=== PATIENT | male | born 1965 | race Caucasian/White ===

== ENCOUNTER 2017-08-03 00:07 | Emergency (ER) | payer OTHER ==
[~2017-08-03] VITALS: Ht 162.6 cm; Wt 68.0 kg
[2017-08-03] MEDS ORDERED: NKM (00:14)
[2017-08-03 00:30] VITALS: BP 125/72
[2017-08-03] MEDS ORDERED: IBUPROFEN600 MG ORAL (01:53)
[2017-08-03] MEDS ORDERED: Ketorolac 30mg Inj IM ONE (02:00)
[2017-08-03 02:10] VITALS: BP 122/75
[2017-08-03 05:44] VITALS: BP 134/91
[2017-08-03 05:50] VITALS: BP 134/91
--- NOTE | 2017-08-03 05:51 | Emergency Room Report ---
History of Present Illness General Chief Complaint: Pain Source: Patient, EMS Present Illness HPI 52-year-old male presents ED for evaluation. Patient brought in by EMS. Patient complaining of chronic pain. Complaining of back pain neck pain diffuse joint pain. Has had this pain for many years now. Throbbing, 7 out of 10, nonradiating. States he does not have any medication for his pain. Denies any recent fall or injury. No other aggravating relieving factors. Denies any other associated symptoms Allergies: Coded Allergies: No Known Allergies (Unverified , 08/03/17) Patient History Past Medical History: none Past Surgical History: none Pertinent Family History: none Social History: Denies: smoking, alcohol use, drug use Immunizations: UTD Reviewed Nursing Documentation: PMH: Agreed, PSxH: Agreed Nursing Documentation-PMH Past Medical History: No Stated History Review of Systems All Other Systems: negative except mentioned in HPI Physical Exam Vital Signs Date Time Temp Pulse Resp B/P (MAP) Pulse Ox O2 Delivery O2 Flow Rate FiO2 08/03/17 00:11 98.1 102 16 128/70 99 98.1 08/03/17 00:30 Room Air Sp02 EP Interpretation: reviewed, normal General Appearance: no apparent distress, alert, GCS 15, non-toxic Head: normocephalic, atraumatic Eyes: bilateral eye normal inspection, bilateral eye PERRL ENT: hearing grossly normal, normal pharynx, no angioedema, normal voice Neck: full range of motion, supple/symm/no masses Respiratory: chest non-tender, lungs clear, normal breath sounds, speaking full sentences Cardiovascular #1: regular rate, rhythm, no edema Cardiovascular #2: 2+ carotid (R), 2+ carotid (L), 2+ radial (R), 2+ radial (L) , 2+ dorsalis pedis (R), 2+ dorsalis pedis (L) Gastrointestinal: normal bowel sounds, non tender, soft, non-distended, no guarding, no rebound Rectal: deferred Genitourinary: normal inspection, no CVA tenderness Musculoskeletal: back normal, gait/station normal, normal range of motion, non- tender Neurologic: alert, oriented x3, responsive, motor strength/tone normal, sensory intact, speech normal Psychiatric: judgement/insight normal, memory normal, mood/affect normal, no suicidal/homicidal ideation Reflexes: 3+ bicep (R), 3+ bicep (L), 3+ tricep (R), 3+ tricep (L), 3+ knee (R) , 3+ knee (L) Skin: normal color, no rash, warm/dry, well hydrated Lymphatic: no adenopathy Procedures Laceration/Wound Repair Laceration/Wound Repair : Consent: Verbal Wound Location: head Wound's Depth, Shape: linear Wound Explored: clean Betadine Prep?: No Wound Debrided: minimal Wound Repaired With: Dermabond Layer Closure?: No Sterile Dressing Applied?: Yes Splint Applied?: No Sling Applied?: No Patient Tolerated: Well Complications: None Medical Decision Making Diagnostic Impression: Primary Impression: Pain Additional Impressions: Head injury Qualified Codes: S09.90XA - Unspecified injury of head, initial encounter Forehead laceration Qualified Codes: S01.81XA - Laceration without foreign body of other part of head, initial encounter ER Course Hospital Course 52-year-old male presents ED complaining of chronic back and joint pains. Requesting shot Clinical course Patient placed on stretcher. After initial history and physical I ordered Toradol Patient completed Toradol injection. Patient wanted to sleep. Attempted to sleep in chair and fell out of chair hitting his head. Sustained laceration to forehead on right side. CT head unremarkable Wound irrigated. Dermabond applied. Patient is safe for discharge Diagnosis - forehead laceration, head injury, pain Stable and discharged to home with prescription for Motrin. wound Care instructions given. Followup with PMD. Return to ED if any signs of infection develop CT/MRI/US Diagnostic Results CT/MRI/US Diagnostic Results : Imaging Test Ordered: CT Head Impression no acute process Last Vital Signs Date Time Temp Pulse Resp B/P (MAP) Pulse Ox O2 Delivery O2 Flow Rate FiO2 08/03/17 05:44 65 18 134/91 98 Room Air 08/03/17 02:08 98.1 Status: improved Disposition: HOME, SELF-CARE Condition: Stable Scripts Ibuprofen* (MOTRIN*) 600 Mg Tablet 600 MG ORAL Q8H Y for For Pain, #30 TAB 0 Refills Prov: KIRBY LAMBERT M.D. 08/03/17 Referrals: [facility],REFERRING (PCP) Patient Instructions: Chronic Pain KIRBY LAMBERT M.D. Aug 03, 2017 05:50
--- NOTE | 2017-08-03 10:00 | Diagnostic Imaging Report ---
Indication: Headache status post fall Technique: spiral acquisitions obtained through the brain. Angled axial and coronal 5 x 5 mm slices were reconstructed. No IV contrast utilized. Radiation dose was minimized using automated exposure control Total dose length product 1330.34 mGycm. CTDIvol(s) 70.38 mGy Comparison: none FINDINGS: No acute hemorrhage or edema. No mass effect or midline shift. There is age-related enlargement of the ventricles and extra axial CSF spaces. Normal cardenas-white differentiation. Visualized orbits are unremarkable. There is mild ethmoid sinus mucosal disease. Intact calvarium. There is minimal soft tissue swelling at the vertex IMPRESSION: Chronic and age-related changes. Negative for acute intracranial bleed or mass effect This agrees with the preliminary interpretation provided overnight by [facility]. The CT scanner at [facility] is accredited by the [employer] and the scans are performed using protocols designed to limit radiation exposure to as low as reasonably achievable to attain images of sufficient resolution adequate for diagnostic evaluation
== END 2017-08-03 05:50 | disposition home or self-care (01) ==
LOC: EDBD 00:07 → EMR 02:30
DX: G89.29 Other chronic pain (principal); M54.9 Dorsalgia, unspecified; S01.81XA Laceration without foreign body of other part of head, initial encounter; X58.XXXA Exposure to other specified factors, initial encounter; Y92.9 Unspecified place or not applicable
CPT/HCPCS: 12011; 70450; 96372; 99284; J1885; Z7502

== ENCOUNTER 2018-07-10 23:28 | Emergency (ER) | payer OTHER ==
[~2018-07-10] VITALS: Ht 162.6 cm; Wt 68.0 kg
[~2018-07-10 23:28] MED LIST: BACITRACIN15 GM TOPIC; IBUPROFEN600 MG ORAL; METFORMIN HCL500 M1 ORAL; NKM; QUETIAPINE FUM200 MG ORAL; UNOBMED
[2018-07-10 23:39] VITALS: BP 128/74
--- NOTE | 2018-07-10 23:39 | NUR ---
ED Nurse Note: pt was brought in by ambulance from home c/o behavioral episode. pt denies si, pt stated he doesnt want to stay in his home, denies abuse. will continue to monitor
--- NOTE | 2018-07-10 23:51 | Emergency Room Report ---
History of Present Illness General Chief Complaint: Behavioral Complaint Source: Patient Present Illness HPI This is a 53-year-old male with a history of diabetes. He also history of methamphetamine abuse. He presents with chief complaint of not liking when he lived. He tell EMS he was depressed. He call from a [place] [facility] from his apartment. He said his apartment is causing him to get sicker because people living there. He said that he did not like it there. He denies any suicidal thoughts to me. Denies any homicidal thoughts or hallucination. Denies any other complaint. Said that he wants to move back to [place]. Allergies: Coded Allergies: No Known Allergies (Unverified , 08/03/17) Patient History Past Medical History: see triage record, old chart reviewed, DM Past Surgical History: other Pertinent Family History: none Social History: Reports: smoking, drug use - Methamphetamine Immunizations: other Reviewed Nursing Documentation: PMH: Agreed; PSxH: Agreed Nursing Documentation-PMH Hx Diabetes: Yes Review of Systems Eye: Denies: eye pain, blurred vision ENT: Denies: ear pain, nose congestion, throat swelling Respiratory: Denies: cough, shortness of breath Cardiovascular: Denies: chest pain, palpitations Gastrointestinal: Denies: abdominal pain, diarrhea, nausea, vomiting Musculoskeletal: Denies: back pain, joint pain Skin: Denies: rash Neurological: Denies: headache, numbness Endocrine: Denies: increased thirst, increased urine Hematologic/Lymphatic: Denies: easy bruising All Other Systems: negative except mentioned in HPI Physical Exam Vital Signs Date Time Temp Pulse Resp B/P (MAP) Pulse Ox O2 Delivery O2 Flow Rate FiO2 07/10/18 23:24 98.2 108 16 128/74 98 Room Air vitals normal Sp02 EP Interpretation: reviewed, normal General Appearance: well appearing, no apparent distress, alert Head: normocephalic, atraumatic Eyes: bilateral eye PERRL, bilateral eye EOMI ENT: hearing grossly normal, normal pharynx Neck: full range of motion, supple, no meningismus Respiratory: chest non-tender, lungs clear, normal breath sounds Cardiovascular #1: regular rate, rhythm, no murmur Gastrointestinal: normal bowel sounds, non tender, no mass, no organomegaly, no bruit, non-distended Musculoskeletal: back normal, gait/station normal, normal range of motion Psychiatric: mood/affect normal Skin: warm/dry Medical Decision Making Diagnostic Impression: Primary Impression: Behavioral disorder Additional Impression: Methamphetamine abuse ER Course Patient with no clear complaint other than he does not likely living. No criteria for 5150. Last Vital Signs Date Time Temp Pulse Resp B/P (MAP) Pulse Ox O2 Delivery O2 Flow Rate FiO2 07/10/18 23:39 98.2 108 16 128/74 98 Room Air Status: unchanged Disposition: HOME, SELF-CARE Condition: Stable Referrals: [facility],REFERRING (PCP) Additional Instructions: Follow-up with your Dr. in 7 days. Return if symptom worsen. Stop using drugs. Hebert Miller MD Jul 10, 2018 23:51
[2018-07-10 23:54] VITALS: BP 128/74
--- NOTE | 2018-07-10 23:54 | NUR ---
ER DISCHARGE NOTE: Patient is cleared to be discharged per ERMD, pt is aox4, on room air, with stable vital signs. pt was given dc instruction pt was able to verbalize understanding, pt id band removed without complications. pt is able to ambulate with steady gait. pt took all belongings.
== END 2018-07-10 23:54 | disposition home or self-care (01) ==
LOC: EDBD 23:28 → EMR 23:47
DX: F91.9 Conduct disorder, unspecified (principal); F15.10 Other stimulant abuse, uncomplicated; E11.9 Type 2 diabetes mellitus without complications
CPT/HCPCS: 99281

== ENCOUNTER 2018-08-19 13:33 | Emergency (ER) | payer OTHER ==
[~2018-08-19] VITALS: Ht 165.1 cm; Wt 59.0 kg
[2018-08-19 13:45] VITALS: BP 113/69
[2018-08-19 13:59] LABS: APPEARANCE,URINE CLEAR; BILIRUBIN, URINE NEGATIVE (NEGATIVE); COLOR,URINE PALE YELLOW; GLUCOSE, URINE (UA) 4+ (NEGATIVE); KETONES,URINE NEGATIVE (NEGATIVE); LEUKOCYTE ESTERASE ,URINE NEGATIVE (NEGATIVE); NITRITE,URINE NEGATIVE (NEGATIVE); PH,URINE 5 (4.5-8.0); PROTEIN,URINE NEGATIVE (NEGATIVE); UROBILINOGEN,URINE NORMAL MG/DL (0.0-1.0)
[2018-08-19] MEDS ORDERED: Mylanta II UD 30ml ORAL ONE (14:00)
[2018-08-19] MEDS ORDERED: Lidocaine 2% Visc 15ml soln ORAL ONE (14:00)
[2018-08-19] MEDS ORDERED: Dicyclomine HCl 10mg/5ml oral soln ORAL ONE (14:00)
--- NOTE | 2018-08-19 14:00 | NUR ---
ED Nurse Note: pt brought by RA from street due to abodminal pain without n/v/d. per pt, resident at the [facility]. pt appears to be agitated, unalbe to stay still. BS 444 at the bed side. pt c/o thirsty. water provide. per pt, has dm but non-compliant for meds. AAO x4. respirations even and non-labored noted. skin warm to touch. no open wound noted. will wait for the further order.
--- NOTE | 2018-08-19 14:30 | Diagnostic Imaging Report ---
Indication: Shortness of breath Technique: One view of the chest Comparison: 04/17/2018 Findings: The lungs and pleural spaces are clear. The heart is borderline enlarged. No significant interim change Impression: Borderline cardiomegaly. No acute process
[2018-08-19 14:40] LABS: BASOPHILS % (AUTO) 1.2 % (0.0-2.0); EOSINOPHILS % (AUTO) 1.6 % (0.0-3.0); HEMATOCRIT 31.7 % (42.0-52.0); HEMOGLOBIN 10.9 G/DL (14.2-18.0); LYMPHOCYTES % (AUTO) 33.2 % (20.0-45.0); MEAN CORPUSCULAR VOLUME 96 FL (80-99); MONOCYTES % (AUTO) 9.2 % (1.0-10.0); NEUTROPHILS % (AUTO) 54.8 % (45.0-75.0); PLATELET COUNT 262 K/UL (150-450); RED CELL DISTRIBUTION WIDTH 13.5 % (11.6-14.8); WHITE BLOOD COUNT 4.5 K/UL (4.8-10.8)
[2018-08-19 14:48] LABS: ANION GAP 12 mmol/L (5-15); BLOOD UREA NITROGEN 14 mg/dL (7-18); CALCIUM 9.5 MG/DL (8.5-10.1); CARBON DIOXIDE 29 MMOL/L (21-32); CHLORIDE 96 MMOL/L (98-107); CREATININE 0.9 MG/DL (0.55-1.30); POTASSIUM 4.1 MMOL/L (3.5-5.1); SODIUM 137 MMOL/L (136-145)
[2018-08-19 14:52] LABS: ALANINE AMINOTRANSFERASE 101 U/L (12-78); ALBUMIN 3.4 G/DL (3.4-5.0); ALBUMIN/GLOBULIN RATIO 0.9 (1.0-2.7); ALKALINE PHOSPHATASE 155 U/L (46-116); ASPARTATE AMINO TRANSFERASE 43 U/L (15-37); BILIRUBIN,TOTAL 0.4 MG/DL (0.2-1.0)
[2018-08-19] MEDS ORDERED: LORazepam Inj 2mg/ml 1ml IM ONE (15:00)
--- NOTE | 2018-08-19 15:00 | NUR ---
ED Nurse Note: RN confirmed with Dr. White that ativan 2mg IV, not IM. will administer med as ordered.
--- NOTE | 2018-08-19 15:50 | Emergency Room Report ---
History of Present Illness General Chief Complaint: Abdominal Pain Source: Patient Present Illness HPI This is a 53-year-old male with extensive psychiatric history, diabetes, noncompliance, who complains of not taking his medication He is somewhat agitated. He denies any suicidal or homicidal ideation. He states that he got kicked out of his board and care facility. He denies any hallucinations. He is somewhat of a poor historian Allergies: Coded Allergies: No Known Allergies (Unverified , 08/03/17) Patient History Past Medical History: DM Past Surgical History: unable to obtain Pertinent Family History: DM Social History: Reports: smoking Nursing Documentation-[facility] Past Medical History: No History, Except For Hx Hypertension: Yes Hx Diabetes: Yes Review of Systems All Other Systems: negative except mentioned in HPI Physical Exam Vital Signs Date Time Temp Pulse Resp B/P (MAP) Pulse Ox O2 Delivery O2 Flow Rate FiO2 08/19/18 13:36 98.6 94 14 113/69 96 Room Air Sp02 EP Interpretation: reviewed General Appearance: well appearing, no apparent distress ENT: hearing grossly normal, normal voice Neck: full range of motion, supple Respiratory: no respiratory distress, speaking full sentences Gastrointestinal: non tender, soft Neurologic: normal inspection, alert, oriented x3, responsive Psychiatric: anxious Medical Decision Making Diagnostic Impression: Primary Impression: Hyperglycemia Additional Impression: hyperglycemia ER Course Patient presents significant complexity of risk requiring multiple bedside evaluation. Initially was very conservative acute diabetic ketoacidosis and cholecystitis, pancreatitis. The patient's gallbladder was reviewed. LFTs were reviewed as well. The blood sugar improved after IV hydration. The patient has a history of long-standing or complaints. The patient was somewhat agitated was given Ativan. He is much more calm now. He is not acutely psychotic. He has no hallucinations. He has no suicidal or homicidal ideation. The patient stabilization, I feel the patient may be discharged home with very close follow-up with his primary care physician and another reminder to continue taking his medications. Laboratory Tests Test 08/19/18 13:45 08/19/18 14:05 Urine Color Pale yellow Urine Appearance Clear Urine pH 5 (4.5-8.0) Urine Specific [place] 1.015 (1.005-1.035) Urine Protein Negative (NEGATIVE) Urine Glucose (UA) 4+ (NEGATIVE) H Urine Ketones Negative (NEGATIVE) Urine Blood Negative (NEGATIVE) Urine Nitrite Negative (NEGATIVE) Urine Bilirubin Negative (NEGATIVE) Urine Urobilinogen Normal MG/DL (0.0-1.0) Urine Leukocyte Esterase Negative (NEGATIVE) White Blood Count 4.5 K/UL (4.8-10.8) L Red Blood Count 3.30 M/UL (4.70-6.10) L Hemoglobin 10.9 G/DL (14.2-18.0) L Hematocrit 31.7 % (42.0-52.0) L Mean Corpuscular Volume 96 FL (80-99) Mean Corpuscular Hemoglobin 32.9 PG (27.0-31.0) H Mean Corpuscular Hemoglobin Concent 34.3 G/DL (32.0-36.0) Red Cell Distribution Width 13.5 % (11.6-14.8) Platelet Count 262 K/UL (150-450) Mean Platelet Volume 7.3 FL (6.5-10.1) Neutrophils (%) (Auto) 54.8 % (45.0-75.0) Lymphocytes (%) (Auto) 33.2 % (20.0-45.0) Monocytes (%) (Auto) 9.2 % (1.0-10.0) Eosinophils (%) (Auto) 1.6 % (0.0-3.0) Basophils (%) (Auto) 1.2 % (0.0-2.0) Sodium Level 137 MMOL/L (136-145) Potassium Level 4.1 MMOL/L (3.5-5.1) Chloride Level 96 MMOL/L (98-107) L Carbon Dioxide Level 29 MMOL/L (21-32) Anion Gap 12 mmol/L (5-15) Blood Urea Nitrogen 14 mg/dL (7-18) Creatinine 0.9 MG/DL (0.55-1.30) Estimate Glomerular Filtration Rate > 60 mL/min (>60) Glucose Level 397 MG/DL (74-106) H Calcium Level 9.5 MG/DL (8.5-10.1) Total Bilirubin 0.4 MG/DL (0.2-1.0) Aspartate Amino Transferase (AST) 43 U/L (15-37) H Alanine Aminotransferase (ALT) 101 U/L (12-78) H Alkaline Phosphatase 155 U/L (46-116) H Troponin I 0.000 ng/mL (0.000-0.056) Total Protein 7.0 G/DL (6.4-8.2) Albumin 3.4 G/DL (3.4-5.0) Globulin 3.6 g/dL Albumin/Globulin Ratio 0.9 (1.0-2.7) L Lipase 484 U/L (73-393) H EKG Diagnostic Results EKG Time: 14:08 Rate: normal Rhythm: NSR ST Segments: no acute changes Last Vital Signs Date Time Temp Pulse Resp B/P (MAP) Pulse Ox O2 Delivery O2 Flow Rate FiO2 08/19/18 13:36 98.6 94 14 113/69 96 Room Air Status: unchanged Disposition: HOME, SELF-CARE Condition: Stable Referrals: [facility],REFERRING (PCP) Patient Instructions: Abdominal Pain, Adult JOHNATHAN ELLIS Aug 19, 2018 15:50
[2018-08-19] MEDS ORDERED: UNOBMED (16:44)
[2018-08-19 17:47] VITALS: BP 157/99
--- NOTE | 2018-08-19 18:10 | Emergency Room Report ---
History of Present Illness General Chief Complaint: Abdominal Pain Source: Patient Present Illness Allergies: Coded Allergies: No Known Allergies (Unverified , 08/03/17) Nursing Documentation-[facility] Past Medical History: No History, Except For Hx Hypertension: Yes Hx Diabetes: Yes Physical Exam Vital Signs Date Time Temp Pulse Resp B/P (MAP) Pulse Ox O2 Delivery O2 Flow Rate FiO2 08/19/18 13:36 98.6 94 14 113/69 96 Room Air Medical Decision Making Last Vital Signs Date Time Temp Pulse Resp B/P (MAP) Pulse Ox O2 Delivery O2 Flow Rate FiO2 08/19/18 13:36 98.6 94 14 113/69 96 Room Air Referrals: [facility],REFERRING (PCP) JOHNATHAN ELLIS Aug 19, 2018 18:10
--- NOTE | 2018-08-19 19:14 | Diagnostic Imaging Report ---
EXAM: US Abdomen Complete CLINICAL HISTORY: ABD PAIN TECHNIQUE: Real-time ultrasound of the abdomen (complete) with image documentation. COMPARISON: No relevant prior studies available. FINDINGS: Liver: Unremarkable. No mass. No intrahepatic bile duct dilation. Gallbladder: Unremarkable. No gallstones. Common bile duct: Unremarkable as visualized. No stones. No dilation. Pancreas: Unremarkable as visualized. Kidneys: Small echogenic focus in the central left kidney. No shadowing to confirm a stone. Regardless, no hydronephrosis. 1 cm upper pole right renal cyst. Spleen: Unremarkable. No splenomegaly. Aorta: Unremarkable. No aneurysm. Inferior vena cava: Unremarkable. IMPRESSION: No gallstones or other biliary pathology. Echogenic lesion to the mid left kidney. No shadowing to confirm a stone. No hydronephrosis.
--- NOTE | 2018-08-19 19:15 | NUR ---
HAND-OFF: Report given to AISHWARYA Givens.
--- NOTE | 2018-08-19 20:35 | NUR ---
ED Nurse Note: Pt cleared by health care Provider for discharge. DC instructions/prescription was given and explained to pt and verbalized understanding of teachings. All medical deviecs such as ID band AND IV removed. Pt is AAO x4, ambulatory and left with all personal belongings.
--- NOTE | 2018-08-22 19:29 | Cardiology Report ---
APPROVED REPORT EKG Measurement Heart [id number] Normal sinus rhythm Possible Left atrial enlargement Borderline ECG
== END 2018-08-19 20:35 | disposition home or self-care (01) ==
LOC: EDBD 13:33 → EMR 13:50
DX: E11.65 Type 2 diabetes mellitus with hyperglycemia (principal); R10.9 Unspecified abdominal pain; I10 Essential (primary) hypertension; F17.200 Nicotine dependence, unspecified, uncomplicated
CPT/HCPCS: 36415; 71045; 76700; 80053; 81003; 82962; 83690; 84484; 85025; 93005; 96360; 96372; 99284

== ENCOUNTER 2019-09-14 02:25 | Emergency (ER) | payer OTHER ==
[~2019-09-14] VITALS: Ht 157.5 cm; Wt 49.9 kg
[2019-09-14] MEDS ORDERED: Bacitracin Oint UD TOPIC ONE (02:45)
[2019-09-14 03:00] VITALS: BP 146/88
--- NOTE | 2019-09-14 03:00 | NUR ---
ED Nurse Note: Pt brought into the ED by REGINE VELAZQUEZ for a generalized complaint. Per REGINE, pt was sleeping on a porch and [employer] was called to scene, pt was requesting to be taken to psych facility but [employer] declined. Pt has unclear complaints, but states he has body pain and pt does have multiple scabs across body. Pt is acting bizarre and is unable to clearly answer questions. Pt is awake and alert, displaying aggressive and hostile behavior by yelling and not consistently being cooperative with nursing staff. Pt breathing is normal and unlabored, no cardiac distress noted. ERMD bedside.
--- NOTE | 2019-09-14 03:01 | Emergency Room Report ---
History of Present Illness General Chief Complaint: Behavioral Complaint Source: Patient, EMS Present Illness HPI Patient is a 54-year-old male past medical history of psychiatric disease not compliant with medications who presents to the ER by EMS with unclear complaints. Per EMS patient was sleeping on the front porch of a house where he used to live. [employer] was called who called EMS to bring him to the emergency room. EMS states they asked [employer] to take him to a psych facility because he was acting bizarre but they declined. Patient states that he wants to sleep and needs something to eat. He is very abrasive and hostile. He intermittently responds to questioning. He complains of generalized body aches and old scabs to his hands and his scalp. He denies any recent trauma. Patient is acting very bizarre Allergies: Coded Allergies: No Known Allergies (Unverified , 08/03/17) COVID-19 Screening Contact w/high risk pt: No Recent Travel to affected area: No Experienced COVID-19 symptoms?: No Patient History Reviewed Nursing Documentation: PMH: Agreed; PSxH: Agreed Nursing Documentation-PMH Past Medical History Deferred: Pt Cognitively Impaired Hx Hypertension: Yes Hx Diabetes: Yes Review of Systems All Other Systems: negative except mentioned in HPI Physical Exam Vital Signs Date Time Temp Pulse Resp B/P (MAP) Pulse Ox O2 Delivery O2 Flow Rate FiO2 09/14/19 02:21 97.5 80 18 146/88 (107) 96 Room Air Sp02 EP Interpretation: reviewed, normal General Appearance: other - poorly groomed Head: other - healing old scabs to scalp Eyes: bilateral eye normal inspection, bilateral eye PERRL ENT: hearing grossly normal, normal pharynx, no angioedema, normal voice Neck: full range of motion, supple/symm/no masses Respiratory: chest non-tender, lungs clear, normal breath sounds, speaking full sentences Cardiovascular #1: regular rate, rhythm, no edema Gastrointestinal: normal bowel sounds, non tender, soft, non-distended, no guarding, no rebound Rectal: deferred Musculoskeletal: back normal, normal range of motion, gait/station normal, non- tender Psychiatric: anxious, other - bizzare Skin: abrasion - multiple healing abrasions to hands and scalp, no surrounding erythema or purulent discharge Lymphatic: no adenopathy Medical Decision Making Diagnostic Impression: Primary Impression: Behavioral disorder Additional Impression: Hyperglycemia ER Course On arrival patient requesting food and drink, given juice, milk, sandwich, chips , and ysabel parvez. Re-evaluation at 350am. Patients blood glucose elevated to >700. Bedside blood glucose around 550. Normal anion gap and normal CO2, no DKA. Will hydrate with IVF and give 10 units of insulin and recheck BS. At 415 am, patient became combative and verbally abusive towards ER staff. He is refusing further care. He states that he wants to leave. He started calling the staff "cunt", saying "don't fucking touch me", "I want to leave". He was kicking towards the staff. Security was called. Patient walked out of the emergency room. Laboratory Tests Test 09/14/19 03:13 09/14/19 03:53 White Blood Count 7.9 K/UL (4.8-10.8) Red Blood Count 4.01 M/UL (4.70-6.10) L Hemoglobin 13.0 G/DL (14.2-18.0) L Hematocrit 35.3 % (42.0-52.0) L Mean Corpuscular Volume 88 FL (80-99) Mean Corpuscular Hemoglobin 32.3 PG (27.0-31.0) H Mean Corpuscular Hemoglobin Concent 36.7 G/DL (32.0-36.0) H Red Cell Distribution Width 10.8 % (11.6-14.8) L Platelet Count 316 K/UL (150-450) Mean Platelet Volume 5.7 FL (6.5-10.1) L Neutrophils (%) (Auto) 72.9 % (45.0-75.0) Lymphocytes (%) (Auto) 19.0 % (20.0-45.0) L Monocytes (%) (Auto) 5.2 % (1.0-10.0) Eosinophils (%) (Auto) 1.4 % (0.0-3.0) Basophils (%) (Auto) 1.4 % (0.0-2.0) Sodium Level 135 MMOL/L (136-145) L Potassium Level 3.9 MMOL/L (3.5-5.1) Chloride Level 96 MMOL/L (98-107) L Carbon Dioxide Level 31 MMOL/L (21-32) Anion Gap 8 mmol/L (5-15) Blood Urea Nitrogen 21 mg/dL (7-18) H Creatinine 1.0 MG/DL (0.55-1.30) Estimated Glomerular Filtration Rate > 60 mL/min (>60) Glucose Level 771 MG/DL (74-106) *H Calcium Level 8.8 MG/DL (8.5-10.1) Total Bilirubin 0.4 MG/DL (0.2-1.0) Aspartate Amino Transferase (AST) 50 U/L (15-37) H Alanine Aminotransferase (ALT) 78 U/L (12-78) Alkaline Phosphatase 229 U/L (46-116) H Total Protein 7.1 G/DL (6.4-8.2) Albumin 3.1 G/DL (3.4-5.0) L Globulin 4.0 g/dL Albumin/Globulin Ratio < 3.0 (1.0-2.7) H Salicylates Level 2.1 ug/mL (2.8-20) L Acetaminophen Level < 2 MCG/ML (10-30) L Serum Alcohol < 3 mg/dL Urine Color Pale yellow Urine Appearance Clear Urine pH 7 (4.5-8.0) Urine Specific [place] 1.010 (1.005-1.035) Urine Protein Negative (NEGATIVE) Urine Glucose (UA) 4+ (NEGATIVE) H Urine Ketones Negative (NEGATIVE) Urine Blood Negative (NEGATIVE) Urine Nitrite Negative (NEGATIVE) Urine Bilirubin Negative (NEGATIVE) Urine Urobilinogen Normal MG/DL (0.0-1.0) Urine Leukocyte Esterase Negative (NEGATIVE) Urine Opiates Screen Negative (NEGATIVE) Urine Barbiturates Screen Negative (NEGATIVE) Phencyclidine (PCP) Screen Negative (NEGATIVE) Urine Amphetamines Screen Negative (NEGATIVE) Urine Benzodiazepines Screen Negative (NEGATIVE) Urine Cocaine Screen Negative (NEGATIVE) Urine Marijuana (THC) Screen Negative (NEGATIVE) Last Vital Signs Date Time Temp Pulse Resp B/P (MAP) Pulse Ox O2 Delivery O2 Flow Rate FiO2 09/14/19 02:21 97.5 80 18 146/88 (107) 96 Room Air Disposition: ELOPED Condition: Unknown Referrals: [facility],REFERRING (PCP) Beronica Sanchez M.D. Sep 14, 2019 03:01
[2019-09-14 03:21] LABS: BASOPHILS % (AUTO) 1.4 % (0.0-2.0); EOSINOPHILS % (AUTO) 1.4 % (0.0-3.0); HEMATOCRIT 35.3 % (42.0-52.0); MEAN CORPUSCULAR VOLUME 88 FL (80-99); MONOCYTES % (AUTO) 5.2 % (1.0-10.0); NEUTROPHILS % (AUTO) 72.9 % (45.0-75.0); PLATELET COUNT 316 K/UL (150-450); RED BLOOD COUNT 4.01 M/UL (4.70-6.10); RED CELL DISTRIBUTION WIDTH 10.8 % (11.6-14.8); WHITE BLOOD COUNT 7.9 K/UL (4.8-10.8)
[2019-09-14 03:34] LABS: ALANINE AMINOTRANSFERASE 78 U/L (12-78); ALBUMIN 3.1 G/DL (3.4-5.0); ALKALINE PHOSPHATASE 229 U/L (46-116); ANION GAP 8 mmol/L (5-15); ASPARTATE AMINO TRANSFERASE 50 U/L (15-37); BILIRUBIN,TOTAL 0.4 MG/DL (0.2-1.0); BLOOD UREA NITROGEN 21 mg/dL (7-18); CALCIUM 8.8 MG/DL (8.5-10.1); CARBON DIOXIDE 31 MMOL/L (21-32); CHLORIDE 96 MMOL/L (98-107); POTASSIUM 3.9 MMOL/L (3.5-5.1); SODIUM 135 MMOL/L (136-145)
[2019-09-14 03:43] LABS: ALBUMIN/GLOBULIN RATIO < 3.0 (1.0-2.7)
--- NOTE | 2019-09-14 03:50 | NUR ---
ED Nurse Note: Accu check BS 573, ERMD aware. Will carry out order for fluids and insulin and recheck BS.
[2019-09-14 04:00] LABS: APPEARANCE,URINE CLEAR; BILIRUBIN, URINE NEGATIVE (NEGATIVE); COLOR,URINE PALE YELLOW; GLUCOSE, URINE (UA) 4+ (NEGATIVE); KETONES,URINE NEGATIVE (NEGATIVE); LEUKOCYTE ESTERASE ,URINE NEGATIVE (NEGATIVE); NITRITE,URINE NEGATIVE (NEGATIVE); PH,URINE 7 (4.5-8.0); PROTEIN,URINE NEGATIVE (NEGATIVE); UROBILINOGEN,URINE NORMAL MG/DL (0.0-1.0)
[2019-09-14] MEDS ORDERED: Insulin Human Regular 100units/ml 3ml IV ONE (04:00)
--- NOTE | 2019-09-14 04:12 | NUR ---
ED Nurse Note: Unable to reassess BS, pt being uncooperative and refusing care.
[2019-09-14 04:15] VITALS: BP 146/88
--- NOTE | 2019-09-14 04:15 | NUR ---
ELOPEMENT: Pt stated "I want to leave" and became aggressive with staff and using foul language towards staff. Security called and pt escorted out of ED. Pt refused further care and walked out. All medical devices such as IV and ID band removed. Pt is aaox4, ambulatory with steady gait and is in no acute distress.
--- NOTE | 2019-09-14 04:15 | NUR ---
ED Nurse Note: At this time pt became aggressive towards staff, kicking and was refusing further care. Pt states he wants to leave and called ER staff "cunt" and yelling "don't fucking touch me". Security called and pt escorted out of ED.
== END 2019-09-14 05:04 | disposition left against medical advice (07) ==
LOC: EDBD 02:25 → EMR 02:51
DX: F91.9 Conduct disorder, unspecified (principal); E11.65 Type 2 diabetes mellitus with hyperglycemia; I10 Essential (primary) hypertension; R23.4 Changes in skin texture
CPT/HCPCS: 36415; 80053; 80307; 81003; 85025; 96361; 96374; G0480; G0481; J1815; J7030; Z7502; 99284